=== PATIENT | male | born 1985 | race American Indian/Alaskan Native ===

== ENCOUNTER 2017-01-18 18:24 | Emergency (ER) | payer BC ==
[2017-01-18 18:44] VITALS: BP 160/108
[2017-01-18] MEDS ORDERED: MOTRIN PO ONE (20:41)
--- NOTE | 2017-01-18 20:50 | Emergency Department Report ---
HPI - General Chief Complaint: Fever Time Seen by Provider: 01/18/17 20:41 - HPI HPI: 31-year-old -Greek male with a past medical history of asthma comes in for having a bad cough and has been using his inhaler more. Patient reports that he had a bad asthma attack about 2 days ago and now he has this cough that won't go away. Patient reports he woke up this a.m. with a fever and complaining of upper muscle aches and neck pain. Patient reports sneezing cough and watery eyes fever or muscle aches and nasal congestion. Patient reports he did take Benadryl without much success. ED Past Medical Hx - Past Medical History Previous Medical History?: Yes Hx Asthma: Yes - Surgical History Past Surgical History?: Yes Additional Surgical History: oral surgery, umbilcal hernia - Social History Smoking Status: Never Smoker Substance Use Type: None - Medications Home Medications: Home Medications Medication Instructions Recorded Confirmed Last Taken Type Ibuprofen [Motrin 800 MG tab] 800 mg PO Q8HR PRN #30 tablet 01/18/17 Unknown Rx Oseltamivir [Tamiflu] 75 mg PO BID #10 cap 01/18/17 Unknown Rx ED Review of Systems ROS: Stated complaint: FEVER Other details as noted in HPI Constitutional: chills, fever (wheezing) ENT: congestion (nasal), other Respiratory: cough Gastrointestinal: vomiting Neurological: headache Physical Exam - Physical Exam Vital Signs: Vital Signs 01/18/17 01/18/17 18:39 20:42 Temperature 99.9 F H 102.3 F H Pulse Rate 89 Blood Pressure 160/108 O2 Sat by Pulse 98 Oximetry Physical Exam: GENERAL: Alert and oriented x3, no apparent distress, Normal Gait, atraumatic. HEAD: Head is normocephalic and a-traumatic. EYES: Extra ocular muscles are intact. Pupils are equal, round, and reactive to light and accommodation. EARS: symetrical, atraumatic, non tender, ear canal clear and moderate cerumen, tympanic membrance non inflamed. gross auditory nml bilaterally. NOSE: Nose symetrical, Nontender, turbinates bilateral edematous MOUTH:Mouth is well hydrated and without lesions. Tonsils nonerythematous or swollen, Uvula midline, Tongue not elevated. Mucous membranes are moist. Posterior pharynx clear, no exudate or lesions. Patent airways. NECK: Supple. Non edematous, No carotid bruits. No lymphadenopathy or thyromegaly. LUNGS: Symetrical with respiration, No wheezing, no rales or crackles, CTAB. HEART: S1, S2 present, tachycardia rate and rhythm without murmur, no rubs, no gallops. ABDOMEN: No organomegaly was noted,Positive bowel sounds, soft, and non- distended. . Nontender to palpation on all Quadrants, NO CVA tenderness. EXTREMITIES/MUSCULOSKELETAL: No cyanosis, clubbing, rash, lesions or edema. Full ROM bilaterally. UE/LE Pulses 2+ bilaterally. LE and UE 5+ strength bilaterally NEUROLOGIC: No focal Deficit, Cranial nerves II through XII are grossly intact. No loss of sensation, No facial droop, PSYCHIATRIC: Mood is congruent with affect, SKIN: Warm and dry, No lesions, No ulceration or induration present ED Course Vital Signs 01/18/17 01/18/17 18:39 20:42 Temperature 99.9 F H 102.3 F H Pulse Rate 89 Blood Pressure 160/108 O2 Sat by Pulse 98 Oximetry Critical care attestation.: If time is entered above; I have spent that time in minutes in the direct care of this critically ill patient, excluding procedure time. ED Disposition Clinical Impression: Influenza due to influenza virus, type B Disposition: DISCHARGED TO HOME OR SELFCARE Is pt being admited?: No Does the pt Need Aspirin: No Condition: Stable Instructions: Influenza (ED) Additional Instructions: Please try to isolate herself as much as possible so you do not spread to flu. Please take medication as prescribed Motrin for pain Pro Air albuterol inhaler for shortness of breathing and cough and Tamiflu to reduce the time of your flu duration. Prescriptions: Ibuprofen [Motrin 800 MG tab] 800 mg PO Q8HR PRN #30 tablet PRN Reason: Pain Oseltamivir [Tamiflu] 75 mg PO BID #10 cap Referrals: PRIMARY CARE,MD [Primary Care Provider] - 3-5 Days Forms: Work/School Release Form(ED)
--- NOTE | 2017-01-19 07:37 | XRay Report ---
CHEST 2 VIEWS INDICATION: Cough and fever. COMPARISON: None similar at this institution. FINDINGS: PA and lateral chest radiographs demonstrate normal cardiomediastinal silhouette and clear lungs. No focal consolidation, pleural effusions or CHF. Mild eventration of the right hemidiaphragm anteriorly. Unremarkable bones. CONCLUSION: No acute chest process, as described. Thank you for the opportunity to participate in this patient's care.
== END 2017-01-18 22:49 | disposition home or self-care (01) ==
LOC: ED 18:24
DX: J11.1 Influenza due to unidentified influenza virus with other respiratory manifestations (principal); J45.909 Unspecified asthma, uncomplicated
CPT/HCPCS: 71020; 87400; 99283